=== PATIENT | male | born 1960 | race Caucasian/White ===

== ENCOUNTER → 2023-03-17 06:21 | Day surgery (SDC) | payer OTHER, SELFPAY | LOC: GI 06:21 | PROVIDERS: ATTENDING PHYSICIAN Specialist | DX: Z12.11 Encounter for screening for malignant neoplasm of colon (principal); D12.2 Benign neoplasm of ascending colon; K63.5 Polyp of colon; Z86.010 Personal history of colon polyps | CPT/HCPCS: 45385; 45380; 88305 ==